=== PATIENT | male | born 1940 | race Caucasian/White ===

== ENCOUNTER → 2018-12-26 | Outpatient (CLI) | payer MEDICARE, BC, OTHER ==
[~2018-12-26] MED LIST: ALLO100 PO; AMLO5 PO; ASPI81CH PO; ATECHL PO; ATEN25 PO; ATEN50 PO; CALCA400CH PO; CHLO25B PO; CYAN1000 PO; ESOM20 PO; GLIP5 PO; HYDR1TAB94 PO; LEVOTHYROXINE; LEVOTHYROXINE PO; LEVSOD50 PO; LISI10 PO; LISI20 PO; LISI5 PO; METF500 PO; NIFE30ER PO; OMEP20ER PO; OXYACE5T PO; POTCHL10ER PO; SUCR1 PO; TERA5 PO
[2018-12-26 15:32] LABS: Bilirubin, Urine Neg (Neg); Blood, Urine Neg (Neg); Glucose Qualitative, Urine Neg (Neg); Ketones, Urine Neg (Neg); Leukocyte Esterase, Urine 1+ (Neg); Nitrite, Urine Neg (Neg); Protein, Urine 2+ (Neg); Specific Gravity, Urine 1.025 (1.003-1.022); Urobilinogen, Urine NORM (Normal)
[2018-12-26 15:56] LABS: Appearance, Urine Clear (Clear); Color, Urine Yellow (P-Yellow); Mucus Mod (0-Heavy)
[2018-12-26 15:57] LABS: Bacteria Few /hpf; Granular Casts 0-2 /lpf (0); Red Blood Cells, Urine 0-2 /hpf (0-2); Squamous Epithelial Cells Few /hpf (Few)
== END | disposition home or self-care (01) ==
LOC: LAB 15:15 → LAB SHORT 15:15
PROVIDERS: Nurse Practitioner
DX: N39.0 Urinary tract infection, site not specified (principal)
CPT/HCPCS: 81001; 87086

== ENCOUNTER 2019-02-22 05:32 | Emergency (ER) | payer MEDICARE, BC, OTHER ==
[~2019-02-22] VITALS: Ht 182.9 cm; Wt 80.7 kg
[2019-02-22] MEDS ORDERED: ELIQUIS5 MG PO (05:54)
[2019-02-22] MEDS ORDERED: MIRT30 PO (05:57)
[2019-02-22] MEDS ORDERED: MEMA10 PO (05:58)
[2019-02-22] MEDS ORDERED: OXYB5 PO (05:58)
[2019-02-22] MEDS ORDERED: TERA5 PO (05:59)
[2019-02-22 06:06] LABS: BASOPHILS ABSOLUTE AUTO 0.01 K/mm3 (0.00-0.23); BASOPHILS PERCENT AUTO 0 % (0-2); EOSINOPHILS PERCENT AUTO 3 % (0-6); Hematocrit 33.2 % (37.0-53.0); Hemoglobin 9.7 g/dL (13.5-17.5); IMMATURE GRAN ABSOLUTE AUTO 0.01 K/mm3 (0.00-0.10); IMMATURE GRAN PERCENT AUTO 0 % (0-1); LYMPHOCYTES ABSOLUTE AUTO 0.54 K/mm3 (0.84-5.20); LYMPHOCYTES PERCENT AUTO 14 % (21-46); MONOCYTES ABSOLUTE AUTO 0.33 K/mm3 (0.16-1.47); MONOCYTES PERCENT AUTO 8 % (4-13); Mean Corpuscular HGB Conc 29.2 g/dL (31.5-36.5); Mean Corpuscular Volume 79 fL (80-100); Mean Platelet Volume 10.1 fL (9.1-12.4); NEUTROPHILS ABSOLUTE AUTO 3.01 K/mm3 (1.96-9.15); NEUTROPHILS PERCENT AUTO 75 % (41-73); Platelet Count 168 K/mm3 (150-400); RDW Coefficient Variation 15.4 % (11.7-14.2); RDW Standard Deviation 44.1 fL (35.1-46.3); Red Blood Cell Count 4.21 M/mm3 (4.30-5.90)
[2019-02-22 06:22] LABS: Alanine Aminotransfer (ALT/SGP 9 U/L (12-78); Albumin, Blood 3.2 g/dL (3.4-5.0); Alk Phos 76 U/L (50-136); Anion Gap 7 mmol/L (6-16); Aspartate Aminotrans (AST/SGOT 7 U/L (12-37); Bilirubin, Total 0.5 mg/dL (0.1-1.0); Blood Urea Nitrogen 27 mg/dL (8-24); Bun/Creatinine Ratio 23.7 (12.0-20.0); CO2, Blood 27 mmol/L (21-32); Calcium, Blood 8.5 mg/dL (8.5-10.1); Chloride, Blood 109 mmol/L (98-108); Creatinine, Blood 1.14 mg/dL (0.60-1.20); Globulin, Blood 3.3 g/dL (2.2-4.0); Glomerular Filtration Rate >60 (60-); Glucose, Blood 115 mg/dL (70-99); Sodium, Blood 143 mmol/L (136-145); Total Protein, Blood 6.5 g/dL (6.4-8.2)
[2019-02-22 06:43] LABS: International Normalized Ratio 1.18; Prothrombin Time Results 12.3 Sec (9.7-11.5)
== END 2019-02-22 08:32 | disposition short-term general hospital (02) ==
LOC: ER 05:32
PROVIDERS: Emergency Medicine
DX: K92.2 Gastrointestinal hemorrhage, unspecified (principal); D50.0 Iron deficiency anemia secondary to blood loss (chronic); E11.22 Type 2 diabetes mellitus with diabetic chronic kidney disease; N18.9 Chronic kidney disease, unspecified; E03.9 Hypothyroidism, unspecified; M81.0 Age-related osteoporosis without current pathological fracture; I25.10 Atherosclerotic heart disease of native coronary artery without angina pectoris; Z79.899 Other long term (current) drug therapy
CPT/HCPCS: 80053; 82272; 85025; 85610; 85730; 96360; 99285-25; J7030

== ENCOUNTER 2019-08-05 12:04 | Inpatient (IN) | payer OTHER, MEDICARE, BC ==
[~2019-08-05] VITALS: Ht 182.9 cm; Wt 81.7 kg
[~2019-08-05 12:04] MED LIST changes: +ELIQUIS5 MG PO; +MEMA10 PO; +MIRT30 PO; +OXYB5 PO
[2019-08-05] MEDS ORDERED: Secura Protecti50 GM TOP (12:09)
[2019-08-05] MEDS ORDERED: LEVSOD50 PO (12:10)
[2019-08-05] MEDS ORDERED: Bacid1 EACH PO (12:10)
[2019-08-05] MEDS ORDERED: OYSTER SHELL 51 EACH PO (12:10)
[2019-08-05] MEDS ORDERED: MIRT30ST PO (12:10)
[2019-08-05] MEDS ORDERED: ALLO100 PO (12:10)
[2019-08-05] MEDS ORDERED: CENTRUM SILVER1 EAC2 PO (12:11)
[2019-08-05] MEDS ORDERED: MEMA10 PO (12:11)
[2019-08-05] MEDS ORDERED: THERA-D2000 UNIT PO (12:12)
[2019-08-05] MEDS ORDERED: OXYB5 PO (12:12)
[2019-08-05] MEDS ORDERED: REGULOID426 GM PO (12:12)
[2019-08-05] MEDS ORDERED: OMEPRAZOLE20 MG PO (12:12)
[2019-08-05] MEDS ORDERED: TERA5 PO (12:12)
[2019-08-05] MEDS ORDERED: Acetaminophen325 M1 PO (12:13)
[2019-08-05] MEDS ORDERED: ANTACID PLUS A355 M2 PO (12:14)
[2019-08-05] MEDS ORDERED: BISA10S PR (12:14)
[2019-08-05 13:13] LABS: BASOPHILS ABSOLUTE AUTO 0.02 K/mm3 (0.00-0.23); BASOPHILS PERCENT AUTO 0 % (0-2); EOSINOPHILS PERCENT AUTO 2 % (0-6); Hematocrit 33.2 % (37.0-53.0); Hemoglobin 9.7 g/dL (13.5-17.5); IMMATURE GRAN ABSOLUTE AUTO 0.03 K/mm3 (0.00-0.10); IMMATURE GRAN PERCENT AUTO 1 % (0-1); LYMPHOCYTES ABSOLUTE AUTO 0.36 K/mm3 (0.84-5.20); LYMPHOCYTES PERCENT AUTO 8 % (21-46); MONOCYTES ABSOLUTE AUTO 0.36 K/mm3 (0.16-1.47); MONOCYTES PERCENT AUTO 8 % (4-13); Mean Corpuscular HGB 22.5 pg (26.0-34.0); Mean Corpuscular HGB Conc 29.2 g/dL (31.5-36.5); Mean Corpuscular Volume 77 fL (80-100); Mean Platelet Volume 9.8 fL (9.1-12.4); NEUTROPHILS ABSOLUTE AUTO 3.62 K/mm3 (1.96-9.15); NEUTROPHILS PERCENT AUTO 81 % (41-73); Platelet Count 141 K/mm3 (150-400); RDW Coefficient Variation 17.4 % (11.7-14.2); RDW Standard Deviation 49.4 fL (35.1-46.3); Red Blood Cell Count 4.31 M/mm3 (4.30-5.90); White Blood Cell Count 4.49 K/mm3 (4.00-11.30)
[2019-08-05 13:27] LABS: Alanine Aminotransfer (ALT/SGP 16 U/L (12-78); Albumin, Blood 3.2 g/dL (3.4-5.0); Albumin/Globulin Ratio 0.9 (0.8-1.8); Alk Phos 79 U/L (50-136); Anion Gap 6 mmol/L (6-16); Aspartate Aminotrans (AST/SGOT 10 U/L (12-37); Bilirubin, Total 0.3 mg/dL (0.1-1.0); Blood Urea Nitrogen 22 mg/dL (8-24); CO2, Blood 27 mmol/L (21-32); Calcium, Blood 8.3 mg/dL (8.5-10.1); Chloride, Blood 110 mmol/L (98-108); Creatinine, Blood 1.16 mg/dL (0.60-1.20); Globulin, Blood 3.7 g/dL (2.2-4.0); Glomerular Filtration Rate >60 (60-); Glucose, Blood 142 mg/dL (70-99); Potassium, Blood 3.8 mmol/L (3.5-5.5); Sodium, Blood 143 mmol/L (136-145); Total Protein, Blood 6.9 g/dL (6.4-8.2)
[2019-08-05 14:57] LABS: International Normalized Ratio 1.11; Prothrombin Time Results 11.7 Sec (9.7-11.5)
[2019-08-05] MEDS ORDERED: ACIDOPHILUS1 EACH PO (15:31)
[2019-08-05] MEDS ORDERED: Exelon1 EAC1 TD (15:35)
[2019-08-05] MEDS ORDERED: BISA5EC PO (15:37)
[2019-08-05] MEDS ORDERED: ADULT GLYCERIN1 EACH PR (15:38)
[2019-08-05] MEDS ORDERED: Anti-Diarrheal2 MG PO (15:39)
[2019-08-05] MEDS ORDERED: MILK OF MA400 MG/5 M PO (15:41)
--- NOTE | 2019-08-05 16:14 | NUR ---
Echocardiogram completed.
--- NOTE | 2019-08-05 17:11 | NUR ---
PATIENT IS LAYING IN BED. NO COMPLAINTS.
--- NOTE | 2019-08-05 19:23 | NUR ---
PATIENT IS ALERT WITH MINOR CONFUSION. HE KNOWS HIS NAME, WHY HE IS AT THE HOSPITAL, HE [facility] THINK [facility]. HE HAS NOT COMPLAINED OF FOOT PAIN SINCE HE WAS ADMITTED. HE HAS HEPARIN AND NS RUNNING. HE ATE DINNER TONIGHT. PATIENT CLAIMS HE DOESNT WALK. REPORT GIVEN TO BRODERICK ELLER.
[2019-08-06 05:00] LABS: BASOPHILS ABSOLUTE AUTO 0.01 K/mm3 (0.00-0.23); BASOPHILS PERCENT AUTO 0 % (0-2); EOSINOPHILS ABSOLUTE AUTO 0.17 K/mm3 (0.00-0.68); EOSINOPHILS PERCENT AUTO 4 % (0-6); Hematocrit 30.7 % (37.0-53.0); Hemoglobin 8.8 g/dL (13.5-17.5); IMMATURE GRAN ABSOLUTE AUTO 0.02 K/mm3 (0.00-0.10); IMMATURE GRAN PERCENT AUTO 1 % (0-1); LYMPHOCYTES ABSOLUTE AUTO 0.56 K/mm3 (0.84-5.20); LYMPHOCYTES PERCENT AUTO 13 % (21-46); MONOCYTES ABSOLUTE AUTO 0.46 K/mm3 (0.16-1.47); MONOCYTES PERCENT AUTO 11 % (4-13); Mean Corpuscular HGB 22.2 pg (26.0-34.0); Mean Corpuscular HGB Conc 28.7 g/dL (31.5-36.5); Mean Corpuscular Volume 77 fL (80-100); Mean Platelet Volume 9.5 fL (9.1-12.4); NEUTROPHILS ABSOLUTE AUTO 3.05 K/mm3 (1.96-9.15); NEUTROPHILS PERCENT AUTO 71 % (41-73); Platelet Count 116 K/mm3 (150-400); RDW Coefficient Variation 17.5 % (11.7-14.2); RDW Standard Deviation 48.9 fL (35.1-46.3); Red Blood Cell Count 3.97 M/mm3 (4.30-5.90); White Blood Cell Count 4.27 K/mm3 (4.00-11.30)
[2019-08-06 05:16] LABS: Alanine Aminotransfer (ALT/SGP 8 U/L (12-78); Albumin, Blood 2.8 g/dL (3.4-5.0); Albumin/Globulin Ratio 0.8 (0.8-1.8); Alk Phos 67 U/L (50-136); Anion Gap 6 mmol/L (6-16); Aspartate Aminotrans (AST/SGOT 9 U/L (12-37); Bilirubin, Total 0.4 mg/dL (0.1-1.0); Blood Urea Nitrogen 19 mg/dL (8-24); Bun/Creatinine Ratio 17.3 (12.0-20.0); CO2, Blood 28 mmol/L (21-32); Calcium, Blood 7.9 mg/dL (8.5-10.1); Chloride, Blood 108 mmol/L (98-108); Globulin, Blood 3.4 g/dL (2.2-4.0); Glomerular Filtration Rate >60 (60-); Glucose, Blood 122 mg/dL (70-99); Magnesium, Blood 1.9 mg/dL (1.6-2.4); Sodium, Blood 142 mmol/L (136-145); Total Protein, Blood 6.2 g/dL (6.4-8.2)
--- NOTE | 2019-08-06 07:33 | NUR ---
08/06/19 0600 NPO FOR POSS. PROCEDURE TODAY. VITALS STABLE. SLEPT WELL THIS SHIFT. POOR SHORT-TERM MEMORY. NEEDS FREQUENT REMINDERS OF INFO. GIVEN. REPOSITIONED Q 2 HOURS WITH HELP.
--- NOTE | 2019-08-06 17:07 | NUR ---
Spiritual Care initial note: Asked to visit Mr. Dunn as it was reported he was tearful earlier today. When I entered room, he appeared aggitated. He could not work the in-room phone. He began to complain that he hadn't eaten "since yesterday" in prep for proceedure today. He was angry he'd been kept waiting. I provided emotional affirmation and calm assurance of care. He calmed slightly. He asked me to help him call his . I did and ended visit at that point. I will remain available.
--- NOTE | 2019-08-06 18:24 | NUR ---
SHIFT SUMMARY PATIENT IN BED ALL SHIFT NPO AWAITING VISIT FROM DOCTOR. UNABLE TO PERFORM ANY THROMBECTOMY TODAY. RLE PAIN REPORTED TOLERABLE BY PATIENT. IV ABX INFUSED NO ASE INDICATED. HEPARIN INFUSING AND VERIFIED WITH TWO NURSES. AWAITING DOCTOR JAVED INSTRUCTIONS AT THIS TIME.
[2019-08-07 04:57] LABS: BASOPHILS ABSOLUTE AUTO 0.02 K/mm3 (0.00-0.23); BASOPHILS PERCENT AUTO 1 % (0-2); EOSINOPHILS ABSOLUTE AUTO 0.17 K/mm3 (0.00-0.68); EOSINOPHILS PERCENT AUTO 6 % (0-6); Hematocrit 32.7 % (37.0-53.0); Hemoglobin 9.6 g/dL (13.5-17.5); IMMATURE GRAN PERCENT AUTO 0 % (0-1); LYMPHOCYTES PERCENT AUTO 10 % (21-46); MONOCYTES ABSOLUTE AUTO 0.21 K/mm3 (0.16-1.47); MONOCYTES PERCENT AUTO 7 % (4-13); Mean Corpuscular HGB 22.1 pg (26.0-34.0); Mean Corpuscular HGB Conc 29.4 g/dL (31.5-36.5); Mean Corpuscular Volume 75 fL (80-100); Mean Platelet Volume 9.7 fL (9.1-12.4); NEUTROPHILS ABSOLUTE AUTO 2.38 K/mm3 (1.96-9.15); NEUTROPHILS PERCENT AUTO 77 % (41-73); Platelet Count 143 K/mm3 (150-400); RDW Standard Deviation 45.6 fL (35.1-46.3); Red Blood Cell Count 4.35 M/mm3 (4.30-5.90); White Blood Cell Count 3.08 K/mm3 (4.00-11.30)
[2019-08-07 05:35] LABS: Anion Gap 6 mmol/L (6-16); Blood Urea Nitrogen 15 mg/dL (8-24); Bun/Creatinine Ratio 14.7 (12.0-20.0); CO2, Blood 27 mmol/L (21-32); Calcium, Blood 8.2 mg/dL (8.5-10.1); Chloride, Blood 109 mmol/L (98-108); Creatinine, Blood 1.02 mg/dL (0.60-1.20); Glomerular Filtration Rate >60 (60-); Glucose, Blood 126 mg/dL (70-99); Potassium, Blood 4.2 mmol/L (3.5-5.5); Sodium, Blood 142 mmol/L (136-145)
--- NOTE | 2019-08-07 07:21 | NUR ---
08/07/19 0600 HEPARIN DRIP RUNNING AND RATE UNCHANGED PER PHARMACY THIS SHIFT. PT FORGETFUL AND KEEPS BENDING ARMS WITH IV. HE ALSO REMOVES WRAPS APPLIED BY RN TO PREVENT IVS "ALARMING". TURNED Q 2 HOURS WITH 2 STAFF.
--- NOTE | 2019-08-07 18:02 | NUR ---
SHIFT SUMMARY PATIENT IN BED ENTIRE SHIFT. MULTIPLE BOWEL MOVEMENTS THIS SHIFT, SOFT. DR. BURT VISITED WITH PATIENT TODAY AND DISCUSSED OPTIONS, AWAITING DEFINITIVE PLAN FOR PATIENT FROM DR. BURT. PATIENT APPETITE IS GOOD. PAIN LEVEL REPORTED TOLERABLE. ABLE TO PALPATE PEDAL PULSE OF RIGHT LEG TODAY AND SWELLING STILL PRESENT. DRESSINGS ON BILAT LEGS CHANGED AND THEY ARE CDI. FLUID RESTRICTION OBSERVED BY PATIENT. TELEMETRY D/C TODAY. PATIENT HAD A CONSULT WITH PT TODAY AND THEY WORKED WITH PATIENT IN ROOM, TOLERATED WELL.
--- NOTE | 2019-08-07 18:18 | NUR ---
SHIFT SUMMARY PATIENT IN BED ENTIRETY OF SHIFT BUT TURNED Q 2 HOURS. MULTIPLE LACHELLE CARE FOR PATIENT D/T INCONTINENCE. PATIENT REMAINED ON HEPARIN DRIP ALL SHIFT + FLUIDS. PATIENT VISITED BY DR. BURT TODAY ABOUT THE PLAN FOR THE CLOT IN LEG, AWAITING A PLAN BY DR. BURT. ALL PO MEDICATIONS ADMINISTERED AND TOLERATED WELL.
[2019-08-08 05:04] LABS: BASOPHILS ABSOLUTE AUTO 0.03 K/mm3 (0.00-0.23); BASOPHILS PERCENT AUTO 1 % (0-2); EOSINOPHILS ABSOLUTE AUTO 0.15 K/mm3 (0.00-0.68); EOSINOPHILS PERCENT AUTO 4 % (0-6); Hematocrit 32.6 % (37.0-53.0); Hemoglobin 9.4 g/dL (13.5-17.5); IMMATURE GRAN ABSOLUTE AUTO 0.02 K/mm3 (0.00-0.10); IMMATURE GRAN PERCENT AUTO 1 % (0-1); LYMPHOCYTES ABSOLUTE AUTO 0.41 K/mm3 (0.84-5.20); LYMPHOCYTES PERCENT AUTO 12 % (21-46); MONOCYTES ABSOLUTE AUTO 0.26 K/mm3 (0.16-1.47); MONOCYTES PERCENT AUTO 8 % (4-13); Mean Corpuscular HGB 21.9 pg (26.0-34.0); Mean Corpuscular HGB Conc 28.8 g/dL (31.5-36.5); Mean Corpuscular Volume 76 fL (80-100); Mean Platelet Volume 9.1 fL (9.1-12.4); NEUTROPHILS PERCENT AUTO 75 % (41-73); Platelet Count 139 K/mm3 (150-400); RDW Coefficient Variation 17.2 % (11.7-14.2); RDW Standard Deviation 46.5 fL (35.1-46.3); White Blood Cell Count 3.47 K/mm3 (4.00-11.30)
[2019-08-08 05:24] LABS: Anion Gap 6 mmol/L (6-16); Blood Urea Nitrogen 16 mg/dL (8-24); Bun/Creatinine Ratio 15.4 (12.0-20.0); CO2, Blood 27 mmol/L (21-32); Calcium, Blood 8.5 mg/dL (8.5-10.1); Chloride, Blood 109 mmol/L (98-108); Creatinine, Blood 1.04 mg/dL (0.60-1.20); Glomerular Filtration Rate >60 (60-); Glucose, Blood 117 mg/dL (70-99); Sodium, Blood 142 mmol/L (136-145)
--- NOTE | 2019-08-08 05:29 | NUR ---
SHIFT SUMMARY PT PLEASANT WITH FLAT AFFECT. A/O. ANSWERS QUESTIONS APPROPRIATELY. PT REPORTED PAIN TO RLE BUT DECLINED TYLENOL. MINIMAL REDNESS AND SWELLING TO RLE. HEPARIN DRIP CONTINUES. NO RATE CHANGES THIS EVENING, CONTINUES TO RUN AT 16 U/KG/HR. PT INCONTINENT. ATTENDS IN PLACE. PT TURNED Q 2 HRS. PT HAD ONE SMALL SOFT BOWEL MOVEMENT THIS EVENING. REDNESS TO LACHELLE/RECTAL AREA, BARRIER CREAM APPLIED. OTHERWISE PT HAD UNEVENTFUL NIGHT. SLEPT WELL WHEN NOT BEING WOKEN BY STAFF. VITAL SIGNS STABLE.
--- NOTE | 2019-08-08 17:39 | NUR ---
SHIFT SUMMARY NO ACUTE CHANGES THIS SHIFT. PT HAS BEEN SLEEPING A LOT OF THE SHIFT. HEPARIN INFUSION STOPPED THIS AFTERNOON AND XARELTO WAS STARTED. PLANS FOR PT TO DISCHARGE TOMORROW AND RETURN TO [facility]. NO COMPLAINTS AT THIS TIME. CALL LIGHT IN REACH. WILL CONTINUE TO MONITOR AND REPORT TO ONCOMING RN.
--- NOTE | 2019-08-09 04:47 | NUR ---
SHIFT SUMMARY PT PLEASANT AND COOPERATIVE. FLAT AFFECT. REMAINED INCONTINENT. REPOSITIONED IN BED FREQUENTLY AND ATTENDS CHANGED NEEDED. ORDERED XARELTO DOSE GIVEN THIS EVENING. MINIMAL SWELLING TO RLE. PT CONTINUES TO REPORT PAIN TO RLE. OFFERED TYLENOL BUT PT DECLINED. PT SLEPT MOST OF THE NIGHT WHEN NOT BEING WOKEN BY STAFF. VITAL SIGNS STABLE. NO ACUTE CHANGES THIS SHIFT. WILL CONTINUE TO MONITOR.
[2019-08-09] MEDS ORDERED: XARELTO20 MG PO (07:45)
[2019-08-09] MEDS ORDERED: CEPH500 PO (07:45)
--- NOTE | 2019-08-09 10:42 | NUR ---
DISCHARGE INSTRUCTIONS VERBALIZED TO PATIENT WELL A PRINTED COPY HANDED TO PATIENT FOR REFERENCE. ALL QUESTIONS ANSWERED. IV'S REMOVED FROM BOTH AC SITES. PATIENT IS WAITING FOR TRANSPORT TO [facility] AT THIS TIME. TRANSPORT TO OCCUR AROUND 11OO.
--- NOTE | 2019-08-09 11:12 | NUR ---
PATIENT PICKED UP BY TRANSPORT AND DICHARGED TO [facility] AT 1109.
== END 2019-08-09 11:11 | disposition home health service (06) | DRG 299 ==
LOC: ER 12:04 → MEDS 12:05 → ER 16:33 → MEDS 16:41 → ENPENDDIS 08-09 11:07 → MEDS 08-09 11:11
PROVIDERS: Emergency Medicine; Pharmacist; ADMIT Family Medicine
DX: I82.411 Acute embolism and thrombosis of right femoral vein (principal); I26.99 Other pulmonary embolism without acute cor pulmonale; L03.115 Cellulitis of right lower limb; F03.91 Unspecified dementia, unspecified severity, with behavioral disturbance; I82.511 Chronic embolism and thrombosis of right femoral vein; D63.8 Anemia in other chronic diseases classified elsewhere; N40.0 Benign prostatic hyperplasia without lower urinary tract symptoms; G89.4 Chronic pain syndrome; E03.9 Hypothyroidism, unspecified; I25.10 Atherosclerotic heart disease of native coronary artery without angina pectoris; K21.9 Gastro-esophageal reflux disease without esophagitis; E78.5 Hyperlipidemia, unspecified; I12.9 Hypertensive chronic kidney disease with stage 1 through stage 4 chronic kidney disease, or unspecified chronic kidney disease; E11.22 Type 2 diabetes mellitus with diabetic chronic kidney disease; N18.9 Chronic kidney disease, unspecified; M81.0 Age-related osteoporosis without current pathological fracture; Z66 Do not resuscitate; D72.819 Decreased white blood cell count, unspecified
CPT/HCPCS: 36415; 71260; 80048; 80053; 83605; 83735; 84145; 84443; 84484; 85025; 85610; 85730; 93306; 93971; 96374-59; 96375-59; 99285-25; A9270; G0378; J0690; J1644; J2270; J2405; J3010; J7030; Q9967

== ENCOUNTER 2019-08-14 12:35 | Emergency (ER) | payer OTHER, MEDICARE, BC ==
[~2019-08-14] VITALS: Ht 182.9 cm; Wt 74.8 kg
[~2019-08-14 12:35] MED LIST changes: +ACIDOPHILUS1 EACH PO; +ADULT GLYCERIN1 EACH PR; +ANTACID PLUS A355 M2 PO; +Acetaminophen325 M1 PO; +Anti-Diarrheal2 MG PO; +BISA10S PR; +BISA5EC PO; +Bacid1 EACH PO; +CENTRUM SILVER1 EAC2 PO; +CEPH500 PO; +Exelon1 EAC1 TD; +MILK OF MA400 MG/5 M PO; +MIRT30ST PO; +OMEPRAZOLE20 MG PO; +OYSTER SHELL 51 EACH PO; +REGULOID426 GM PO; +Secura Protecti50 GM TOP; +THERA-D2000 UNIT PO; +XARELTO20 MG PO
[2019-08-14 13:41] LABS: BASOPHILS ABSOLUTE AUTO 0.01 K/mm3 (0.00-0.23); BASOPHILS PERCENT AUTO 0 % (0-2); EOSINOPHILS ABSOLUTE AUTO 0.01 K/mm3 (0.00-0.68); EOSINOPHILS PERCENT AUTO 0 % (0-6); Hematocrit 34.1 % (37.0-53.0); IMMATURE GRAN ABSOLUTE AUTO 0.02 K/mm3 (0.00-0.10); IMMATURE GRAN PERCENT AUTO 0 % (0-1); LYMPHOCYTES ABSOLUTE AUTO 0.25 K/mm3 (0.84-5.20); LYMPHOCYTES PERCENT AUTO 3 % (21-46); MONOCYTES ABSOLUTE AUTO 0.49 K/mm3 (0.16-1.47); MONOCYTES PERCENT AUTO 6 % (4-13); Mean Corpuscular HGB 22.1 pg (26.0-34.0); Mean Corpuscular HGB Conc 29.3 g/dL (31.5-36.5); Mean Corpuscular Volume 75 fL (80-100); Mean Platelet Volume 9.3 fL (9.1-12.4); NEUTROPHILS ABSOLUTE AUTO 7.46 K/mm3 (1.96-9.15); NEUTROPHILS PERCENT AUTO 91 % (41-73); Platelet Count 146 K/mm3 (150-400); RDW Standard Deviation 47.8 fL (35.1-46.3); Red Blood Cell Count 4.52 M/mm3 (4.30-5.90); White Blood Cell Count 8.24 K/mm3 (4.00-11.30)
[2019-08-14 14:02] LABS: Anion Gap 7 mmol/L (6-16); Blood Urea Nitrogen 30 mg/dL (8-24); Bun/Creatinine Ratio 26.3 (12.0-20.0); CO2, Blood 25 mmol/L (21-32); Calcium, Blood 8.6 mg/dL (8.5-10.1); Chloride, Blood 111 mmol/L (98-108); Creatinine, Blood 1.14 mg/dL (0.60-1.20); Glomerular Filtration Rate >60 (60-); Glucose, Blood 117 mg/dL (70-99); Potassium, Blood 3.9 mmol/L (3.5-5.5); Sodium, Blood 143 mmol/L (136-145)
[2019-08-14 16:10] LABS: Source, Urine Clean Catch
[2019-08-14 16:20] LABS: Bilirubin, Urine Neg (Neg); Blood, Urine 4+ (Neg); Glucose Qualitative, Urine Neg (Neg); Ketones, Urine Neg (Neg); Leukocyte Esterase, Urine Neg (Neg); Nitrite, Urine Neg (Neg); Protein, Urine 1+ (Neg); Urobilinogen, Urine NORM (Normal)
[2019-08-14 16:33] LABS: Appearance, Urine Clear (Clear); Color, Urine Yellow (P-Yellow)
[2019-08-14 16:35] LABS: Bacteria Few /hpf; Squamous Epithelial Cells Few /hpf (Few); White Blood Cells, Urine 0-2 /hpf (0-5)
== END 2019-08-14 18:37 | disposition home or self-care (01) ==
LOC: ER 12:35
PROVIDERS: Emergency Medicine
DX: F03.90 Unspecified dementia, unspecified severity, without behavioral disturbance, psychotic disturbance, mood disturbance, and anxiety (principal); R41.0 Disorientation, unspecified; Z79.899 Other long term (current) drug therapy; E03.9 Hypothyroidism, unspecified; E11.22 Type 2 diabetes mellitus with diabetic chronic kidney disease; N18.9 Chronic kidney disease, unspecified; I12.9 Hypertensive chronic kidney disease with stage 1 through stage 4 chronic kidney disease, or unspecified chronic kidney disease; K21.9 Gastro-esophageal reflux disease without esophagitis
CPT/HCPCS: 36415; 51701; 70450; 71045; 80048; 81001; 85025; 96360-59; 96361-59; 99285-25; J7030

== ENCOUNTER 2019-08-20 15:07 | Emergency (ER) | payer OTHER, MEDICARE, BC ==
[~2019-08-20] VITALS: Ht 182.9 cm; Wt 90.7 kg
[2019-08-20] MEDS ORDERED: FERSU300 PO (15:29)
[2019-08-20] MEDS ORDERED: REGULOID426 GM PO (15:31)
[2019-08-20] MEDS ORDERED: XARELTO15 MG PO (15:33)
[2019-08-20 15:41] LABS: BASOPHILS ABSOLUTE AUTO 0.02 K/mm3 (0.00-0.23); BASOPHILS PERCENT AUTO 0 % (0-2); EOSINOPHILS ABSOLUTE AUTO 0.14 K/mm3 (0.00-0.68); EOSINOPHILS PERCENT AUTO 3 % (0-6); Hematocrit 34.2 % (37.0-53.0); Hemoglobin 9.6 g/dL (13.5-17.5); IMMATURE GRAN ABSOLUTE AUTO 0.02 K/mm3 (0.00-0.10); IMMATURE GRAN PERCENT AUTO 0 % (0-1); LYMPHOCYTES PERCENT AUTO 11 % (21-46); MONOCYTES PERCENT AUTO 6 % (4-13); Mean Corpuscular HGB Conc 28.1 g/dL (31.5-36.5); Mean Platelet Volume 10.3 fL (9.1-12.4); NEUTROPHILS ABSOLUTE AUTO 3.75 K/mm3 (1.96-9.15); NEUTROPHILS PERCENT AUTO 79 % (41-73); Platelet Count 185 K/mm3 (150-400); RDW Coefficient Variation 17.6 % (11.7-14.2); RDW Standard Deviation 49.8 fL (35.1-46.3); Red Blood Cell Count 4.37 M/mm3 (4.30-5.90); White Blood Cell Count 4.73 K/mm3 (4.00-11.30)
[2019-08-20 15:43] LABS: Mean Corpuscular Volume 78 fL (80-100)
[2019-08-20 15:54] LABS: Alanine Aminotransfer (ALT/SGP 21 U/L (12-78); Albumin, Blood 3.2 g/dL (3.4-5.0); Albumin/Globulin Ratio 0.8 (0.8-1.8); Alk Phos 69 U/L (50-136); Anion Gap 5 mmol/L (6-16); Aspartate Aminotrans (AST/SGOT 24 U/L (12-37); Bilirubin, Total 0.3 mg/dL (0.1-1.0); Blood Urea Nitrogen 27 mg/dL (8-24); Bun/Creatinine Ratio 28.8 (12.0-20.0); CO2, Blood 27 mmol/L (21-32); Calcium, Blood 8.5 mg/dL (8.5-10.1); Chloride, Blood 113 mmol/L (98-108); Creatinine, Blood 0.94 mg/dL (0.60-1.20); Globulin, Blood 3.9 g/dL (2.2-4.0); Glomerular Filtration Rate >60 (60-); Glucose, Blood 109 mg/dL (70-99); Potassium, Blood 4.2 mmol/L (3.5-5.5); Sodium, Blood 145 mmol/L (136-145); Total Protein, Blood 7.1 g/dL (6.4-8.2); Troponin I <0.015 ng/mL (0.000-0.040)
== END 2019-08-20 19:04 | disposition home or self-care (01) ==
LOC: ER 15:07
PROVIDERS: Physician Assistant
DX: I26.99 Other pulmonary embolism without acute cor pulmonale (principal); I82.501 Chronic embolism and thrombosis of unspecified deep veins of right lower extremity; Z79.899 Other long term (current) drug therapy; I12.9 Hypertensive chronic kidney disease with stage 1 through stage 4 chronic kidney disease, or unspecified chronic kidney disease; E11.22 Type 2 diabetes mellitus with diabetic chronic kidney disease; N18.9 Chronic kidney disease, unspecified; E03.9 Hypothyroidism, unspecified; K21.9 Gastro-esophageal reflux disease without esophagitis
CPT/HCPCS: 36415; 71046; 80053; 84484; 85025; 93005; 93010; 93971; 99285-25